=== PATIENT | female | born 1960 | race American Indian/Alaskan Native ===

== ENCOUNTER 2017-05-05 23:36 | Emergency (ER) | payer OTHER ==
[2017-05-05 23:43] VITALS: BP 133/79
[2017-05-06] MEDS ORDERED: ZOFRAN IV ONE (00:38)
[2017-05-06] MEDS ORDERED: MORPHINE IV ONE (00:38)
[2017-05-06 00:42] LABS: BUN/Creatinine Ratio 18; Blood Urea Nitrogen 9 mg/dL (7-17); Calcium 9.2 mg/dL (8.4-10.2); Carbon Dioxide 18 mmol/L (22-30); Glucose 388 mg/dL (65-100)
[2017-05-06 00:43] LABS: Chloride 98.3 mmol/L (98-107); Sodium 136 mmol/L (137-145)
--- NOTE | 2017-05-06 00:43 | Emergency Department Report ---
ED Lower Extremity HPI - General Chief Complaint: Extremity Injury, Lower Stated Complaint: RT ANKLE PAIN Time Seen by Provider: 05/06/17 00:37 Source: patient, EMS Mode of arrival: Stretcher Limitations: No Limitations - History of Present Illness Initial Comments: 56 YO FEMALE C/O FALL ON HER CARPET IN HER BATHROOM. SHE HAS RIGHT ANKLE PAIN AND SWELLING. REESE DENIES BEING DIZZY OR ANY OTHER REASON FOR FALL EXCEPT HER FOOT BEING CAUGHT ON THE CARPET. MD Complaint: leg injury -: Sudden, hour(s) (2) Injury: Leg: Right, Ankle: Right Type of Injury: inversion Place: home Severity: severe Severity scale (0 -10): 7 Worsens With: weight bearing, movement, palpation Context: fall, direct blow Associated Symptoms: snap/pop sensation, swelling, unable to bear weight - Related Data Previous Rx's Medication Instructions Recorded Last Taken Type oxyCODONE /ACETAMINOPHEN [Percocet 2 tab PO Q6HR PRN #20 tablet 05/06/17 Unknown Rx 5/325] Allergies Allergy/AdvReac Type Severity Reaction Status Date / Time No Known Allergies Allergy Unverified 05/05/17 23:37 ED Review of Systems ROS: Stated complaint: RT ANKLE PAIN Other details as noted in HPI Constitutional: denies: chills, fever Eyes: denies: eye pain, eye discharge, vision change ENT: denies: ear pain, throat pain Respiratory: denies: cough, shortness of breath, wheezing Cardiovascular: denies: chest pain, palpitations Endocrine: no symptoms reported Gastrointestinal: denies: abdominal pain, nausea, diarrhea Genitourinary: denies: urgency, dysuria, discharge Musculoskeletal: joint swelling, arthralgia. denies: back pain Skin: denies: rash, lesions Neurological: denies: headache, weakness, paresthesias Psychiatric: denies: anxiety, depression Hematological/Lymphatic: denies: easy bleeding, easy bruising ED Past Medical Hx - Past Medical History Previous Medical History?: Yes Hx Diabetes: Yes - Surgical History Past Surgical History?: Yes Additional Surgical History: hysterectomy and tonsillectomy - Social History Smoking Status: Never Smoker Substance Use Type: Alcohol, Marijuana - Medications Home Medications: Home Medications Medication Instructions Recorded Confirmed Last Taken Type oxyCODONE /ACETAMINOPHEN [Percocet 2 tab PO Q6HR PRN #20 tablet 05/06/17 Unknown Rx 5/325] ED Physical Exam - General Limitations: No Limitations General appearance: alert, in no apparent distress - Head Head exam: Present: atraumatic, normocephalic - Eye Eye exam: Present: normal appearance, EOMI. Absent: scleral icterus, conjunctival injection - ENT ENT exam: Present: mucous membranes moist - Neck Neck exam: Present: normal inspection, full ROM - Respiratory Respiratory exam: Present: normal lung sounds bilaterally. Absent: respiratory distress - Cardiovascular Cardiovascular Exam: Present: regular rate, normal rhythm. Absent: systolic murmur, diastolic murmur, rubs, gallop - GI/Abdominal GI/Abdominal exam: Present: soft, normal bowel sounds - Extremities Exam Extremities exam: Present: normal inspection, tenderness (RIGHT ANKEL SWELLLING , TENDERNESS, TENDERNESSIN MID CALF) - Back Exam Back exam: Present: normal inspection - Neurological Exam Neurological exam: Present: alert, oriented X3, CN II-XII intact - Psychiatric Psychiatric exam: Present: normal affect, normal mood - Skin Skin exam: Present: warm, dry, intact, normal color. Absent: rash ED Course Vital Signs 05/05/17 23:37 Temperature 98.6 F Pulse Rate 83 Respiratory 18 Rate Blood Pressure 133/79 O2 Sat by Pulse 99 Oximetry ED Lower Extremity MDM - Lab Data Result diagrams: 05/06/17 00:06 05/05/17 23:52 - Radiology Data Radiology results: report reviewed (XRAY TIB/FIB; DISTAL FIBULA FRACTURE XRAY RTANKLE: AVULSION FRACTURE OF MEDIAL MALLOULUS/TALAR DONE) Critical care attestation.: If time is entered above; I have spent that time in minutes in the direct care of this critically ill patient, excluding procedure time. ED Disposition Clinical Impression: Fractured medial malleolus Qualifiers: Encounter type: initial encounter Fracture type: closed Fracture alignment: displaced Laterality: right Qualified Code(s): S82.51XA - Displaced fracture of medial malleolus of right tibia, initial encounter for closed fracture Disposition: - TO HOME OR SELFCARE Is pt being admited?: No Does the pt Need Aspirin: No Condition: Stable Additional Instructions: PLEASE CALL TOMORROW FOR AN APPOINT WITH DR RED TO GET A CAST PLACED. Prescriptions: oxyCODONE /ACETAMINOPHEN [Percocet 325] 2 tab PO Q6HR PRN #20 tablet PRN Reason: Pain Referrals: PRIMARY CAREMD [Primary Care Provider] - 3-5 Days CIELO RED MD [Staff Physician] - 3-5 Days Time of Disposition: 02:46
[2017-05-06 00:49] LABS: Basophils % (Auto) 1.1 % (0.0-1.8); Eosinophils % (Auto) 3.7 % (0.0-4.3); Hematocrit 43.5 % (30.3-42.9); Hemoglobin 14.6 gm/dl (10.1-14.3); Mean Corpuscular HGB Conc 34 % (30-34); Mean Corpuscular Hemoglobin 30 pg (28-32); Mean Corpuscular Volume 90 fl (79-97); Red Blood Count 4.81 M/mm3 (3.65-5.03); Red Cell Distribution Width 13.5 % (13.2-15.2); White Blood Count 7.9 K/mm3 (4.5-11.0)
[2017-05-06 00:52] LABS: Platelet Count 124 K/mm3 (140-440)
[2017-05-06 00:54] LABS: Anion Gap 24 mmol/L; Potassium 4.6 mmol/L (3.6-5.0)
--- NOTE | 2017-05-06 01:38 | XRay Report ---
FINAL REPORT PROCEDURE: XR ANKLE 3+V RT TECHNIQUE: RIGHT ankle radiographs, AP, lateral, and oblique views. CPT 74675 HISTORY: Fracture. COMPARISON: Radiographs of the tibia and fibula dated same day and time. FINDINGS: Fracture (s) and/or Dislocation(s): Oblique mildly comminuted fracture through the distal 3rd of the fibula. Mild anterior lateral displacement of the distal fracture fragment in relation to the proximal fracture fragment. Small density seen about the medial malleolus with slight irregularity of the medial talar dome. Alignment: Normal. Joint space(s): Small patellar osteophytes. Medial compartment narrowing. Tibial eminence spurring. Slight tibiotalar joint narrowing. Soft tissues: Mild soft tissue swelling about the ankle. Bone mineralization: Osteopenia. Slight irregularity and lucency of the lateral distal tibia about the tibial fibular joint. Foreign bodies: None. Calcaneal spurring: Small plantar spur. IMPRESSION: Posttraumatic distal fibular fracture. Cannot exclude age indeterminate subtle avulsion injury of the medial malleolus/talar dome. Mild soft tissue swelling overlying the ankle. Osteopenia and degenerative change. Lucency of the distal tibia at the tibial fibular joint, could be related to patient positioning but consider further evaluation including MRI if there is concern for underlying infectious/inflammatory or even neoplastic process (and if patient has no contraindication to MRI).
--- NOTE | 2017-05-06 01:41 | XRay Report ---
FINAL REPORT PROCEDURE: XR RIGHT TIBIA/FIBULA TECHNIQUE: RIGHT tibia/fibula radiographs AP and lateral views. CPT 82396 HISTORY: Fracture. COMPARISON: Radiographs of the ankle dated same day and time. FINDINGS: Fracture (s) and/or Dislocation(s): Oblique mildly comminuted fracture through the distal 3rd of the fibula. Mild anterior lateral displacement of the distal fracture fragment in relation to the proximal fracture fragment. Small density seen about the medial malleolus with slight irregularity of the medial talar dome. Alignment: Normal. Joint space(s): Small patellar osteophytes. Medial compartment narrowing. Tibial eminence spurring. Slight tibiotalar joint narrowing. Soft tissues: Mild soft tissue swelling about the ankle. Bone mineralization: Osteopenia. Slight irregularity and lucency of the lateral distal tibia about the tibial fibular joint. Foreign bodies: None. Calcaneal spurring: Small plantar and calcaneal spurs. IMPRESSION: Posttraumatic distal fibular fracture. Cannot exclude age indeterminate subtle avulsion injury of the medial malleolus/talar dome. Mild soft tissue swelling overlying the ankle. Osteopenia and degenerative change. Lucency of the distal tibia at the tibial fibular joint, could be related to patient positioning but consider further evaluation including MRI if there is concern for underlying infectious/inflammatory or even neoplastic process (and if patient has no contraindication to MRI).
[2017-05-06] MEDS ORDERED: MORPHINE IM ONE (03:18)
[2017-05-06] MEDS ORDERED: ZOFRAN ODT PO ONE (03:18)
[2017-05-06] MEDS ORDERED: MORPHINE ONE (03:22)
== END 2017-05-06 03:35 | disposition home or self-care (01) ==
LOC: ED 23:36
DX: S82.51XA Displaced fracture of medial malleolus of right tibia, initial encounter for closed fracture (principal); E11.9 Type 2 diabetes mellitus without complications; F12.10 Cannabis abuse, uncomplicated; W01.198A Fall on same level from slipping, tripping and stumbling with subsequent striking against other object, initial encounter; Y93.89 Activity, other specified; Y92.091 Bathroom in other non-institutional residence as the place of occurrence of the external cause; Y99.8 Other external cause status
CPT/HCPCS: 29515; 36415; 73590; 73610; 80048; 85025; 96372; 96374; 96375; 96376; 99284; J2270; J2405; Q0162

== ENCOUNTER 2017-05-09 09:55 | Emergency (ER) | payer SELFPAY ==
[2017-05-09 10:41] VITALS: BP 164/93
--- NOTE | 2017-05-09 13:36 | XRay Report ---
Left foot 3 views. History: Reinjury after fibular fracture. Findings: No fractures or other significant findings are seen.
--- NOTE | 2017-05-09 13:56 | Emergency Department Report ---
HPI - General Chief Complaint: Extremity Injury, Lower Time Seen by Provider: 05/09/17 12:51 - HPI HPI: This is a 56-year-old female who was seen here last Monday 4 days ago, for fracture right fibula and also to follow up with her orthopedic Dr. Jacobson. Patient is here today because she states she went to follow up with Dr. Jacobson and due to her insurance not had any effect she was told to pay of the prior to visit and she was unable to make a payment, she was not able to follow up yesterday. Patient states reports here because she was told to follow-up in [place] to get a cast. She denies any re-injury of the foot, falls or any trauma in the past 4 days ED Past Medical Hx - Past Medical History Previous Medical History?: Yes Hx Diabetes: Yes - Surgical History Past Surgical History?: Yes Additional Surgical History: hysterectomy and tonsillectomy - Social History Smoking Status: Never Smoker Substance Use Type: Alcohol, Marijuana - Medications Home Medications: Home Medications Medication Instructions Recorded Confirmed Last Taken Type oxyCODONE /ACETAMINOPHEN [Percocet 2 tab PO Q6HR PRN #20 tablet 05/06/17 Unknown Rx 5/325] Cyclobenzaprine [Flexeril] 10 mg PO TID PRN #20 tablet 05/09/17 Unknown Rx Ibuprofen [Motrin] 800 mg PO Q8HR PRN #40 tablet 05/09/17 Unknown Rx ED Review of Systems ROS: Stated complaint: RIGHT FOOT PAIN Other details as noted in HPI Constitutional: denies: chills, fever Eyes: denies: eye pain, eye discharge, vision change ENT: denies: ear pain, throat pain Respiratory: denies: cough, shortness of breath, wheezing Cardiovascular: denies: chest pain, palpitations Endocrine: no symptoms reported Gastrointestinal: denies: abdominal pain, nausea, diarrhea Genitourinary: denies: urgency, dysuria, discharge Musculoskeletal: denies: back pain, joint swelling, arthralgia Skin: denies: rash, lesions Neurological: denies: headache, weakness, paresthesias Psychiatric: denies: anxiety, depression Hematological/Lymphatic: denies: easy bleeding, easy bruising Physical Exam - Physical Exam Vital Signs: Vital Signs 05/09/17 10:35 Temperature 98.5 F Pulse Rate 107 H Respiratory 18 Rate Blood Pressure 164/93 O2 Sat by Pulse 98 Oximetry Physical Exam: GENERAL: Alert and oriented x3, no apparent distress, Normal Gait, atraumatic. HEAD: Head is normocephalic and a-traumatic. EYES: Extra ocular muscles are intact. Pupils are equal, round, and reactive to light and accommodation. LUNGS: Symetrical with respiration, No wheezing, no rales or crackles, CTAB. EXTREMITIES/MUSCULOSKELETAL: No cyanosis, clubbing, rash, lesions or edema. Full ROM bilaterally. Right leg and posterior OCL splint, looks appropriate, neurovascular function intact NEUROLOGIC: The patient is cooperative with no focal neurologic deficits. Normal speech. Normal sensation in bilateral upper and lower extremities, No loss of sensation, SKIN: Warm and dry, No lesions, No ulceration or induration present. ED Course Vital Signs 05/09/17 10:35 Temperature 98.5 F Pulse Rate 107 H Respiratory 18 Rate Blood Pressure 164/93 O2 Sat by Pulse 98 Oximetry ED Medical Decision Making - Medical Decision Making This 56-year-old female presents with status post fibular fracture. ED course: I discussed with the patient in that she needed to follow up with orthopedics for continued management of the fracture. I discussed the patient that she has a posterior OCL splint on her leg and would need management with orthopedic. Patient stated that she was called back to [place] and will seek orthopedically she gets fever due to her having insurance over there. I discussed patient to not sit still for long period of time. I discussed the patient to move adequately throughout the day and keep the elevated. Patient is in no acute distress or respiratory distress. She has no signs of instructions given Vital signs are normal. Waqar wrap was rewrapped onto the anterior cruciate ligament. Patient given crutches instructions and told to follow-up. Patient states she understands instructions given this time around and knows she needs to follow-up with Toradol for continued management of fracture Critical care attestation.: If time is entered above; I have spent that time in minutes in the direct care of this critically ill patient, excluding procedure time. ED Disposition Clinical Impression: Fibula fracture Qualifiers: Encounter type: subsequent encounter Fracture type: closed Disposition: DC-01 TO HOME OR SELFCARE Is pt being admited?: No Does the pt Need Aspirin: No Condition: Stable Instructions: Leg Fracture (ED), Crutch Instructions (ED), Splint Care (ED) Additional Instructions: Please make a follow-up with her orthopedic doctor for the management of her fracture continue taking your medication as prescribed. Take the Motrin every 8 hours for pain and Flexeril at night due to drowsiness effect of Flexeril only take bedtime. You may take here Percocet every 6 hours or as needed in conjunction which are Motrin She have any worsening symptoms please return to the ED. Prescriptions: Cyclobenzaprine [Flexeril] 10 mg PO TID PRN #20 tablet PRN Reason: Muscle Spasm Ibuprofen [Motrin] 800 mg PO Q8HR PRN #40 tablet PRN Reason: Pain Referrals: PRIMARY CARE, [Primary Care Provider] - 3-5 Days [facility] [place] - 3-5 Days [facility] [Outside] - 3-5 Days LEVI RUBALCAVA MD [Staff Physician] - 3-5 Days Forms: Accompanied Note, Work/School Release Form Time of Disposition: 14:05
== END 2017-05-09 14:42 | disposition home or self-care (01) ==
LOC: ED 09:55
DX: S82.401D Unspecified fracture of shaft of right fibula, subsequent encounter for closed fracture with routine healing (principal); E11.9 Type 2 diabetes mellitus without complications; F12.10 Cannabis abuse, uncomplicated; X58.XXXD Exposure to other specified factors, subsequent encounter
CPT/HCPCS: 99283